=== PATIENT | female | born 1970 | race Two or more races ===

== ENCOUNTER 2021-01-10 13:18 | Emergency (ER) | payer OTHER ==
[~2021-01-10] VITALS: Ht 160 cm; Wt 68.2 kg
[2021-01-10 13:19] VITALS: BP 144/89
[2021-01-10] MEDS ORDERED: IBUPROFEN 600 MG TABLET PO ONE (14:30)
== END 2021-01-10 14:34 | disposition home or self-care (01) ==
LOC: EMS 13:29
DX: S70.02XA Contusion of left hip, initial encounter (principal); S40.012A Contusion of left shoulder, initial encounter; S50.02XA Contusion of left elbow, initial encounter; W19.XXXA Unspecified fall, initial encounter; Y93.89 Activity, other specified; Y92.89 Other specified places as the place of occurrence of the external cause; Y99.0 Civilian activity done for income or pay
CPT/HCPCS: 99282; Z7502; Z7610